=== PATIENT | female | born 1985 | race Caucasian/White ===

== ENCOUNTER 2017-12-11 17:52 | Emergency (ER) | payer SELFPAY ==
[~2017-12-11 17:52] MED LIST: HYDR-4225 PO
[2017-12-11] MEDS ORDERED: FLU44R INH (17:58)
--- NOTE | 2017-12-11 18:06 | ER Report ---
History and Physical Time Seen By MD: 18:05 Hx. of Stated Complaint: PATIENT REPORTS INTERMITTENTLY VOMITING X 2-3 WEEKS, REPORTS THAT IT IS BLOODY AT TIMES AND STATES TODAY IT LOOKED LIKE COFFEE GROUNDS. ALSO HAVING ABD PAIN OF 9/10 HPI/ROS CHIEF COMPLAINT: Vomiting blood HISTORY OF PRESENT ILLNESS: 32-year-old female presents with hematemesis 20 minutes prior to arrival. She's had severe epigastric pain for 2 weeks with some intermittent vomiting. Occasionally, there is been blood. She's had no black stools. No diarrhea. She notes constipation but no blood per rectum. Patient states she is under a great deal of stress. She denies NSAIDs to excess , she drinks significant coughing, but no alcohol. She's never had a previous problem with gastric ulcers or dyspepsia. Her last menstrual period was 3 weeks ago. She denies dysuria, frequent or hematuria. She notes burning epigastric and throat pain 6/10 with no alleviating or exacerbating factors REVIEW OF SYSTEMS: Respiratory: No cough, no dyspnea. Cardiovascular: No chest pain, no palpitations. Gastrointestinal: As above Musculoskeletal: No back pain. Allergies: Coded Allergies: Penicillins (Verified Allergy, Mild, ITCHING, 12/11/17) codeine (Verified Allergy, Mild, ITCHING, 12/11/17) Home Meds Active Scripts Ondansetron (ZOFRAN ODT) 4 Mg Tab.rapdis, 4 MG PO every 6 hours Y for NAUSEA/ VOMITING, #12 TAB TAKE 1 TABLET BY MOUTH EVERY 12 HOURS Prov:MESERET MAYEN DO 12/11/17 Oxycodone Hcl/Acetaminophen (PERCOCET 5-325 MG TABLET) 1 Each Tablet, 1 EACH PO Q4-6H Y for PAIN, #12 Prov:MESERET MAYEN DO 12/11/17 Reported Medications Fluticasone Prop 44 Mcg (FLOVENT HFA 44 MCG) 44 Mcg Inha, 44 MCG INH, INH 12/11/17 Discontinued Scripts Hydroxyzine Hcl (HYDROXYZINE HCL) 25 Mg Tablet, 25 MG PO Q6H Y for ANXIETY, #30 TAB Prov:LANDRY CHAO 05/08/17 Past Medical/Surgical History Patient has a past medical history of fluid around heart, asthma, hypothyroidism. Patient has a surgical history of a breast biopsy. Reviewed Nurses Notes: Yes Old Medical Records Reviewed: Yes Constitutional Vital Sign - Last 24 Hours 12/11/17 12/11/17 12/11/17 17:58 20:19 20:58 Temp 97.5 Pulse 104 91 Resp 19 12 B/P (MAP) 126/93 104/78 (87) Pulse Ox 95 93 O2 Delivery Room Air Room Air O2 Flow Rate 2.0 Physical Exam General Appearance: The patient is alert, has no immediate need for airway protection and no current signs of toxicity. Skin warm, dry, pink, vital signs stable, mildly tachycardic at 104 HEENT: Pupils equal and round no injection. Oropharynx without redness, mucous. Membranes are moist and pink Respiratory: Chest is non tender, lungs are clear to auscultation. Cardiac: regular rate and rhythm Gastrointestinal: Abdomen is soft, moderate epigastric tenderness, no rebound or guarding, no masses, bowel sounds normal. Musculoskeletal: Neck: Neck is supple and non tender. No lymphadenopathy Extremities have full range of motion and are non tender. No edema, no calf tenderness Skin: No rashes or lesions. DIFFERENTIAL DIAGNOSIS: After history and physical exam differential diagnosis was considered for upper GI bleeding including but not limited to ulcer disease , gastritis, Johana-Navarrete tear, and esophageal varices. Medical Decision Making Data Points Result Diagram: 12/11/17 1808 12/11/17 1808 Laboratory Hematology Test 12/11/17 18:08 12/11/17 18:49 Red Blood Count 4.61 M/uL (4.17-5.56) Mean Corpuscular Volume 89.7 fL (80.0-96.0) Mean Corpuscular Hemoglobin 31.0 pg (26.0-33.0) Mean Corpuscular Hemoglobin Concent 34.6 g/dL (32.0-36.0) Red Cell Distribution Width 12.6 % (11.5-14.5) Mean Platelet Volume 7.6 fL (7.2-11.1) Neutrophils (%) (Auto) 74.5 % (39.4-72.5) Lymphocytes (%) (Auto) 19.3 % (17.6-49.6) Monocytes (%) (Auto) 4.3 % (4.1-12.4) Eosinophils (%) (Auto) 1.4 % (0.4-6.7) Basophils (%) (Auto) 0.5 % (0.3-1.4) Nucleated RBC Relative Count (auto) 0.0 /100WBC Neutrophils # (Auto) 13.0 K/uL (2.0-7.4) Lymphocytes # (Auto) 3.3 K/uL (1.3-3.6) Monocytes # (Auto) 0.7 K/uL (0.3-1.0) Eosinophils # (Auto) 0.2 K/uL (0.0-0.5) Basophils # (Auto) 0.1 K/uL (0.0-0.1) Nucleated RBC Absolute Count (auto) 0.00 K/uL Prothrombin Time 13.2 seconds (12.0-14.4) Prothromb Time International Ratio 1.00 Activated Partial Thromboplast Time 29 seconds (23-35) Sodium Level 136 mmol/L (137-145) Potassium Level 3.8 mmol/L (3.5-5.0) Chloride Level 101 mmol/L (98-107) Carbon Dioxide Level 22 mmol/L (22-31) Blood Urea Nitrogen 16 mg/dl (7-18) Creatinine 0.80 mg/dl (0.52-1.04) Glomerular Filtration Rate Calc > 60.0 Random Glucose 109 mg/dl (75-110) Calcium Level 9.5 mg/dl (8.4-10.2) Total Bilirubin 0.8 mg/dl (0.2-1.3) Aspartate Amino Transf (AST/SGOT) 38 U/L (0-35) Alanine Aminotransferase (ALT/SGPT) 57 U/L (0-56) Alkaline Phosphatase 92 U/L (0-126) Total Protein 8.0 gm/dl (6.3-8.2) Albumin 4.5 g/dl (3.5-5.0) Amylase Level 94 U/L (0-110) Lipase 41 U/L (23-300) Human Chorionic Gonadotropin, Qual Negative (NEGATIVE) Urine Color Yellow Urine Clarity Clear Urine pH 5.0 pH (4.8-9.5) Urine Specific [place] 1.019 Urine Protein Negative mg/dL (NEGATIVE) Urine Glucose (UA) Negative mg/dL (NEGATIVE) Urine Ketones Trace mg/dL (NEGATIVE) Urine Blood Large (NEGATIVE) Urine Nitrite Negative (NEGATIVE) Urine Bilirubin Negative (NEGATIVE) Urine Urobilinogen Negative mg/dL (0.2-1.9) Urine Leukocyte Esterase Negative (NEGATIVE) Urine RBC 34 /HPF (0-2/HPF) Urine WBC 3 /HPF (0-5/HPF) Urine Squamous Epithelial Cells Many /LPF (</=FEW) Urine Bacteria Few /HPF (NONE-FEW) Urine Mucus None /HPF (NONE-FEW) Chemistry Test 12/11/17 18:08 12/11/17 18:49 White Blood Count 17.4 k/uL (4.5-11.0) Red Blood Count 4.61 M/uL (4.17-5.56) Hemoglobin 14.3 g/dL (12.0-16.0) Hematocrit 41.3 % (34.0-47.0) Mean Corpuscular Volume 89.7 fL (80.0-96.0) Mean Corpuscular Hemoglobin 31.0 pg (26.0-33.0) Mean Corpuscular Hemoglobin Concent 34.6 g/dL (32.0-36.0) Red Cell Distribution Width 12.6 % (11.5-14.5) Platelet Count 317 K/uL (150-450) Mean Platelet Volume 7.6 fL (7.2-11.1) Neutrophils (%) (Auto) 74.5 % (39.4-72.5) Lymphocytes (%) (Auto) 19.3 % (17.6-49.6) Monocytes (%) (Auto) 4.3 % (4.1-12.4) Eosinophils (%) (Auto) 1.4 % (0.4-6.7) Basophils (%) (Auto) 0.5 % (0.3-1.4) Nucleated RBC Relative Count (auto) 0.0 /100WBC Neutrophils # (Auto) 13.0 K/uL (2.0-7.4) Lymphocytes # (Auto) 3.3 K/uL (1.3-3.6) Monocytes # (Auto) 0.7 K/uL (0.3-1.0) Eosinophils # (Auto) 0.2 K/uL (0.0-0.5) Basophils # (Auto) 0.1 K/uL (0.0-0.1) Nucleated RBC Absolute Count (auto) 0.00 K/uL Prothrombin Time 13.2 seconds (12.0-14.4) Prothromb Time International Ratio 1.00 Activated Partial Thromboplast Time 29 seconds (23-35) Glomerular Filtration Rate Calc > 60.0 Calcium Level 9.5 mg/dl (8.4-10.2) Total Bilirubin 0.8 mg/dl (0.2-1.3) Aspartate Amino Transf (AST/SGOT) 38 U/L (0-35) Alanine Aminotransferase (ALT/SGPT) 57 U/L (0-56) Alkaline Phosphatase 92 U/L (0-126) Total Protein 8.0 gm/dl (6.3-8.2) Albumin 4.5 g/dl (3.5-5.0) Amylase Level 94 U/L (0-110) Lipase 41 U/L (23-300) Human Chorionic Gonadotropin, Qual Negative (NEGATIVE) Urine Color Yellow Urine Clarity Clear Urine pH 5.0 pH (4.8-9.5) Urine Specific [place] 1.019 Urine Protein Negative mg/dL (NEGATIVE) Urine Glucose (UA) Negative mg/dL (NEGATIVE) Urine Ketones Trace mg/dL (NEGATIVE) Urine Blood Large (NEGATIVE) Urine Nitrite Negative (NEGATIVE) Urine Bilirubin Negative (NEGATIVE) Urine Urobilinogen Negative mg/dL (0.2-1.9) Urine Leukocyte Esterase Negative (NEGATIVE) Urine RBC 34 /HPF (0-2/HPF) Urine WBC 3 /HPF (0-5/HPF) Urine Squamous Epithelial Cells Many /LPF (</=FEW) Urine Bacteria Few /HPF (NONE-FEW) Urine Mucus None /HPF (NONE-FEW) Coagulation Test 12/11/17 18:08 Prothrombin Time 13.2 seconds Prothromb Time International Ratio 1.00 Activated Partial Thromboplast Time 29 seconds Urinalysis Test 12/11/17 18:49 Urine Color Yellow Urine Clarity Clear Urine pH 5.0 pH (4.8-9.5) Urine Specific [place] 1.019 Urine Protein Negative mg/dL (NEGATIVE) Urine Glucose (UA) Negative mg/dL (NEGATIVE) Urine Ketones Trace mg/dL (NEGATIVE) Urine Blood Large (NEGATIVE) Urine Nitrite Negative (NEGATIVE) Urine Bilirubin Negative (NEGATIVE) Urine Urobilinogen Negative mg/dL (0.2-1.9) Urine Leukocyte Esterase Negative (NEGATIVE) Urine RBC 34 /HPF (0-2/HPF) Urine WBC 3 /HPF (0-5/HPF) Urine Squamous Epithelial Cells Many /LPF (</=FEW) Urine Bacteria Few /HPF (NONE-FEW) Urine Mucus None /HPF (NONE-FEW) EKG/Imaging Imaging Results: CT scan of the abdomen and pelvis with IV contrast was obtained. The results of the study are CT abdomen and pelvis with IV contrast Indication: Epigastric pain. Elevated white blood cell count. Comparison: None available. . Technique: Axial CT images were obtained through the abdomen and pelvis during injection of nonionic iodinated intravenous contrast. Reformatted coronal and sagittal images were also obtained. One of the following dose optimization techniques was utilized in the performance of this exam: Automated exposure control; adjustment of the mA and/ or kV according to the patient's size; or use of an iterative reconstruction technique. Specific details can be referenced in the facility's radiology CT exam operational policy. Contrast: 75 ml of Isovue-370 IV contrast. Findings: Lower lung lara: Limited views lower lung field are unremarkable. Liver: No focal parenchymal abnormality of the liver. Biliary: Gallbladder appears unremarkable as well as the intra and extra hepatic biliary system. Pancreas: Normal appearance. Spleen: Normal appearance. Adrenal glands: Unremarkable. Kidneys / retroperitoneum: The right kidney does show a 2 mm stone collecting system without hydronephrosis. The kidneys show no other stones or hydronephrosis. No discrete renal lesions. Bowel / peritoneum / mesenteries: Sigmoid colon appears to have a couple areas of contractions without focal abnormality. The colon shows no focal abnormality. The appendix is normal. Small bowel shows no focal abnormality or obstruction. The stomach is mainly decompressed and grossly normal. No free air, free fluid, fluid collections or areas of inflammation. Small umbilical hernia containing fat. Lymph node assessment: No pathologic adenopathy identified. Pelvic structures: Left ovary contains a 2.3 cm cyst. The ovaries are otherwise unremarkable. The uterus may show a subseptate appearance. The right fundal portion the uterus does show a partially exophytic nodule measuring 1.3 cm consistent fibroid and is otherwise unremarkable.. Each wall of the vagina does show a cyst without inflammatory changes or other focal abnormality. Right side measures 2.1 cm left side measures 1.1 cm. These are consistent with Bartholin's gland cyst. The remaining pelvic structures visualized within normal limits. Vessels: No significant atherosclerotic calcifications seen throughout a nonaneurysmal abdominal aorta and branches. Musculoskeletal / Body wall: No acute or aggressive osseous abnormality. IMPRESSION: 1. No acute intra-abdominal abnormality 2. Nonobstructing right renal calculi. 3. Left ovary shows a 2.3 cm cyst. 4. The uterus shows a possible subseptate appearance and a 1.3 cm fibroid. 5. There is a Bartholin's gland cyst seen in its side of the vagina. The study was read by the radiologist. I viewed the images myself on the PACS system. ED Course/Re-evaluation Clinical Indication for ER IV: Hydration, IV Access ED Course Patient was admitted to an examination room. H&P was done. The differential diagnoses was considered, on clinical examination. Patient has severe epigastric abdominal pain with vomiting and reported hematemesis. She's had no black stools or blood per rectum. Patient's treated with IV fluid, Zofran, fentanyl. Diagnostic studies show normal WBC count, normal H&H. Her coags are normal. Patient had presented significant abdominal discomfort. CT scan was performed which showed no acute findings. Patient's advised to take Prilosec 20 mg per day. She's given a limited supply of Percocet and Zofran for temporary pain relief. She is advised to avoid alcohol NSAIDs and caffeine. She is advised to follow-up with Dr. Bernard for endoscopy. Decision to Disposition Date: Dec 11, 2017 Decision to Disposition Time: 20:30 Depart Departure Latest Vital Signs Vital Signs Date Time Temp Pulse Resp B/P (MAP) Pulse Ox O2 Delivery O2 Flow Rate FiO2 12/11/17 20:58 91 12 104/78 (87) 93 Room Air 12/11/17 20:19 2.0 12/11/17 17:58 97.5 Impression: Primary Impression: Hematemesis Additional Impressions: History of gastric ulcer Epigastric pain Condition: Improved Disposition: HOME OR SELF-CARE Referrals: TEOFILO COFFEY MD New Scripts Ondansetron (ZOFRAN ODT) 4 Mg Tab.rapdis 4 MG PO every 6 hours Y for NAUSEA/VOMITING, #12 TAB TAKE 1 TABLET BY MOUTH EVERY 12 HOURS Prov: MESERET MAYEN DO 12/11/17 Oxycodone Hcl/Acetaminophen (PERCOCET 5-325 MG TABLET) 1 Each Tablet 1 EACH PO Q4-6H Y for PAIN, #12 Prov: MESERET MAYEN DO 12/11/17 Patient Instructions: Diet for Stomach Ulcers and Gastritis (ED), Hematemesis ( ED) Additional Instructions: Avoid caffeine, NSAIDs, alcohol Take Prilosec 20 mg twice daily for 1 week, then once daily Call and make an appointment with Dr. Bernard next week Problem Qualifiers Primary Impression: Hematemesis Nausea presence: with nausea Qualified Codes: K92.0 - Hematemesis MESERET MAYEN DO Dec 11, 2017 18:05
[2017-12-11] MEDS ORDERED: NS(*) 0.9% 1000 ML BAG 1,000 ML IV ONE (18:11)
[2017-12-11] MEDS ORDERED: fentaNYL CITR 100 MCG/2 ML AMP IVP ONE (18:15)
[2017-12-11] MEDS ORDERED: ONDANSETRON 4 MG/2 ML VIAL IVP ONE (18:15)
[2017-12-11 18:24] LABS: PLATELET COUNT, AUTOMATED 317 K/uL (150-450)
[2017-12-11] MEDS ORDERED: HYDROmorphone(ER ONLY) 1 MG/ML IVP ONE (19:15)
[2017-12-11] MEDS ORDERED: IOPAMIDOL 76% 75 ML INFUS BTL 75 ML ONE (19:26)
--- NOTE | 2017-12-11 20:22 | RADIOLOGY IMAGING REPORT ---
FACILITY: [facility] PATIENT NAME: Elaine Brito : 1985 MR: [id number] V: [id number] EXAM DATE: ORDERING PHYSICIAN: MESERET MAYEN TECHNOLOGIST: Location: [facility] - [place] Patient: Elaine Brito : 1985 Visit/Account:[id number] Date of Sevice: 12/11/2017 CT abdomen and pelvis with IV contrast Indication: Epigastric pain. Elevated white blood cell count. Comparison: None available. . Technique: Axial CT images were obtained through the abdomen and pelvis during injection of nonioni c iodinated intravenous contrast. Reformatted coronal and sagittal images were also obtained. One of the following dose optimization techniques was utilized in the performance of this exam: Autom ated exposure control; adjustment of the mA and/or kV according to the patient's size; or use of an i terative reconstruction technique. Specific details can be referenced in the facility's radiology C T exam operational policy. Contrast: 75 ml of Isovue-370 IV contrast. Findings: Lower lung lara: Limited views lower lung field are unremarkable. Liver: No focal parenchymal abnormality of the liver. Biliary: Gallbladder appears unremarkable as well as the intra and extra hepatic biliary system. Pancreas: Normal appearance. Spleen: Normal appearance. Adrenal glands: Unremarkable. Kidneys / retroperitoneum: The right kidney does show a 2 mm stone collecting system without hydronep hrosis. The kidneys show no other stones or hydronephrosis. No discrete renal lesions. Bowel / peritoneum / mesenteries: Sigmoid colon appears to have a couple areas of contractions withou t focal abnormality. The colon shows no focal abnormality. The appendix is normal. Small bowel shows no focal abnormality or obstruction. The stomach is mainly decompressed and grossly normal. No free air, free fluid, fluid collections or areas of inflammation. Small umbilical hernia containin g fat. Lymph node assessment: No pathologic adenopathy identified. Pelvic structures: Left ovary contains a 2.3 cm cyst. The ovaries are otherwise unremarkable. The uterus may show a subseptate appearance. The right fundal portion the uterus does show a partially ex ophytic nodule measuring 1.3 cm consistent fibroid and is otherwise unremarkable.. Each wall of the v agina does show a cyst without inflammatory changes or other focal abnormality. Right side measures 2 .1 cm left side measures 1.1 cm. These are consistent with Bartholin's gland cyst. The remaining pelv ic structures visualized within normal limits. Vessels: No significant atherosclerotic calcifications seen throughout a nonaneurysmal abdominal aort a and branches. Musculoskeletal / Body wall: No acute or aggressive osseous abnormality. IMPRESSION: 1. No acute intra-abdominal abnormality 2. Nonobstructing right renal calculi. 3. Left ovary shows a 2.3 cm cyst. 4. The uterus shows a possible subseptate appearance and a 1.3 cm fibroid. 5. There is a Bartholin's gland cyst seen in its side of the vagina. Report Dictated By: Jesus Alejo at 12/11/2017 7:59 PM Report E-Signed By: Jesus Alejo at 12/11/2017 8:18 PM WSN:[id number]
[2017-12-11] MEDS ORDERED: ONDA4TAB PO (20:32)
[2017-12-11] MEDS ORDERED: OXYC-865 PO (20:32)
[2017-12-11] MEDS ORDERED: ONDANSETRON 4 MG ODT TH SL ONE (20:35)
[2017-12-11] MEDS ORDERED: oxyCODONE/ACETAMIN 5/325MG TH 2 TAB/BOTTLE PO ONE (20:35)
[2017-12-11 20:58] VITALS: BP 104/78
== END 2017-12-11 20:55 | disposition home or self-care (01) ==
LOC: ER 18:00
DX: K92.0 Hematemesis (principal); R10.13 Epigastric pain
CPT/HCPCS: 74177; 81001; 82150; 83690; 84703; 85025; 85610; 85730; 96361; 96374; 96375; 99283; J1170; J2405; J3010; J7030; Q9967; S0119; 82040; 82247; 82310; 82374; 82435; 82565; 82947; 84075; 84132; 84155; 84295; 84450; 84460; 84520

== ENCOUNTER 2018-04-03 19:24 | Emergency (ER) | payer SELFPAY ==
[~2018-04-03 19:24] MED LIST changes: +FLU44R INH; +ONDA4TAB PO; +OXYC-865 PO
--- NOTE | 2018-04-03 19:25 | ER Report ---
History and Physical Time Seen By MD: 19:25 HPI/ROS CHIEF COMPLAINT: Vomiting blood, chest pain HISTORY OF PRESENT ILLNESS: 32-year-old female presents ambulatory the ER complaining of chest pain for 5 days. She describes sharp substernal chest pain without radiation. She notes no associated symptoms. She comes in tonight because of chest pain is constant and severe. She notes it's been primary intermittent for the last 5 days. Tonight she vomited some blood. She has a similar presentation from back in November of this year. She was referred to Dr. Bernard for endoscopy. She failed to follow-up. She notes she took her aspirin earlier today. She denies NSAIDs to excess, alcohol or caffeine. Patient denies history of abdominal surgery. Her last menstrual period was 03/19. During her last evaluation. A CAT scan of the abdomen and pelvis was performed. There were general Lack of remarkable findings. REVIEW OF SYSTEMS: Respiratory: No cough, no dyspnea. Cardiovascular: As above Gastrointestinal: As above Musculoskeletal: No back pain. Allergies: Coded Allergies: Penicillins (Verified Allergy, Mild, ITCHING, 12/11/17) codeine (Verified Allergy, Mild, ITCHING, 12/11/17) Home Meds Active Scripts Tramadol Hcl (TRAMADOL HCL) 50 Mg Tablet, 1 TAB PO Q6H Y for PAIN, #12 MG TAKE ONE TABLET BY MOUTH EVERY SIX HOURS NEEDED Prov:TIARRAMESERET DO 04/03/18 Lorazepam (ATIVAN) 1 Mg Tablet, 1 MG PO Q6-8H Y for ANXIETY, #12 Prov:MESERET MAYEN Radha DO 04/03/18 Ondansetron (ZOFRAN ODT) 4 Mg Tab.rapdis, 4 MG PO Q6H Y for NAUSEA/VOMITING, # 12 TAB.CASSIDY Prov:MESERET AMYEN DO 04/03/18 Discontinued Reported Medications Fluticasone Prop 44 Mcg (FLOVENT HFA 44 MCG) 44 Mcg Inha, 44 MCG INH, INH 12/11/17 Discontinued Scripts Ondansetron (ZOFRAN ODT) 4 Mg Tab.rapdis, 4 MG PO every 6 hours Y for NAUSEA/ VOMITING, #12 TAB TAKE 1 TABLET BY MOUTH EVERY 12 HOURS Prov:MESERET MAYEN DO 12/11/17 Oxycodone Hcl/Acetaminophen (PERCOCET 5-325 MG TABLET) 1 Each Tablet, 1 EACH PO Q4-6H Y for PAIN, #12 Prov:MESERET MAYEN DO 12/11/17 Reviewed Nurses Notes: Yes Old Medical Records Reviewed: Yes Constitutional Vital Sign - Last 24 Hours 04/03/18 04/03/18 04/03/18 04/03/18 19:27 19:28 19:29 19:30 Temp 98.6 Pulse 85 83 Resp 16 22 B/P (MAP) 108/82 (91) 108/82 104/72 (83) Pulse Ox 98 98 O2 Delivery Room Air 04/03/18 04/03/18 04/03/18 04/03/18 19:34 19:39 19:44 19:49 Pulse 75 82 73 81 Resp 26 17 16 16 Pulse Ox 97 96 96 96 04/03/18 04/03/18 04/03/18 04/03/18 19:52 19:54 20:14 20:20 Pulse 73 72 Resp 20 12 B/P (MAP) 98/67 (77) 109/81 (90) Pulse Ox 98 94 04/03/18 20:29 Pulse 77 Resp 11 Pulse Ox 97 Physical Exam Vital signs stable, afebrile, pulse ox normal General Appearance: The patient is alert, has no immediate need for airway protection and no current signs of toxicity. Slightly pale appearing, skin warm and dry HEENT: Pupils equal and round no injection. TMs normal, oropharynx without redness or exudate, no evidence of bleeding, and nasal passages. Oropharynx Respiratory: Chest is non tender, lungs are clear to auscultation. Mild chest wall tenderness on compression Cardiac: regular rate and rhythm Gastrointestinal: Abdomen is soft and non tender, no masses, bowel sounds normal. Musculoskeletal: Neck: Neck is supple and non tender. No lymphadenopathy, no JVD Extremities have full range of motion and are non tender. No calf tenderness, no edema Skin: No rashes or lesions. DIFFERENTIAL DIAGNOSIS: After history and physical exam differential diagnosis was considered for abdominal pain including but not limited to appendicitis, cholecystitis, dyspepsia, peptic ulcer disease, gastritis, esophagitis gastritis and urinary tract infection. Additionally,chest pain including but not limited to myocardial ischemia, pericarditis pulmonary embolus, chest wall pain, pleural inflammation and pulmonary infectious causes. Medical Decision Making Data Points Result Diagram: 04/03/18192904/03/181929 Laboratory Hematology Test 04/03/18 19:30 04/03/18 20:02 Red Blood Count 4.98 M/uL (4.17-5.56) Mean Corpuscular Volume 89.8 fL (80.0-96.0) Mean Corpuscular Hemoglobin 31.7 pg (26.0-33.0) Mean Corpuscular Hemoglobin Concent 35.3 g/dL (32.0-36.0) Red Cell Distribution Width 12.8 % (11.5-14.5) Mean Platelet Volume 7.7 fL (7.2-11.1) Neutrophils (%) (Auto) 58.0 % (39.4-72.5) Lymphocytes (%) (Auto) 29.4 % (17.6-49.6) Monocytes (%) (Auto) 4.7 % (4.1-12.4) Eosinophils (%) (Auto) 6.7 % (0.4-6.7) Basophils (%) (Auto) 1.2 % (0.3-1.4) Nucleated RBC Relative Count (auto) 0.0 /100WBC Neutrophils # (Auto) 5.6 K/uL (2.0-7.4) Lymphocytes # (Auto) 2.8 K/uL (1.3-3.6) Monocytes # (Auto) 0.5 K/uL (0.3-1.0) Eosinophils # (Auto) 0.7 K/uL (0.0-0.5) Basophils # (Auto) 0.1 K/uL (0.0-0.1) Nucleated RBC Absolute Count (auto) 0.00 K/uL Prothrombin Time 12.8 seconds (12.0-14.4) Prothromb Time International Ratio 0.96 Activated Partial Thromboplast Time 29 seconds (23-35) D-Dimer Quantitative (PE/DVT) 0.43 ug/ml (0-0.50) Sodium Level 139 mmol/L (137-145) Potassium Level 3.8 mmol/L (3.5-5.0) Chloride Level 108 mmol/L (98-107) Carbon Dioxide Level 20 mmol/L (22-31) Blood Urea Nitrogen 13 mg/dl (7-18) Creatinine 0.80 mg/dl (0.52-1.04) Glomerular Filtration Rate Calc > 60.0 Random Glucose 116 mg/dl (75-110) Calcium Level 8.9 mg/dl (8.4-10.2) Total Bilirubin 1.0 mg/dl (0.2-1.3) Aspartate Amino Transf (AST/SGOT) 35 U/L (0-35) Alanine Aminotransferase (ALT/SGPT) 50 U/L (0-56) Alkaline Phosphatase 82 U/L (0-126) Troponin I < 0.012 ng/ml Total Protein 7.8 g/dl (6.3-8.2) Albumin 4.5 g/dl (3.5-5.0) Human Chorionic Gonadotropin, Qual Negative (NEGATIVE) Amylase Level 63 U/L (0-110) Lipase 47 U/L (23-300) Chemistry Test 04/03/18 19:30 04/03/18 20:02 White Blood Count 9.7 k/uL (4.5-11.0) Red Blood Count 4.98 M/uL (4.17-5.56) Hemoglobin 15.8 g/dL (12.0-16.0) Hematocrit 44.7 % (34.0-47.0) Mean Corpuscular Volume 89.8 fL (80.0-96.0) Mean Corpuscular Hemoglobin 31.7 pg (26.0-33.0) Mean Corpuscular Hemoglobin Concent 35.3 g/dL (32.0-36.0) Red Cell Distribution Width 12.8 % (11.5-14.5) Platelet Count 328 K/uL (150-450) Mean Platelet Volume 7.7 fL (7.2-11.1) Neutrophils (%) (Auto) 58.0 % (39.4-72.5) Lymphocytes (%) (Auto) 29.4 % (17.6-49.6) Monocytes (%) (Auto) 4.7 % (4.1-12.4) Eosinophils (%) (Auto) 6.7 % (0.4-6.7) Basophils (%) (Auto) 1.2 % (0.3-1.4) Nucleated RBC Relative Count (auto) 0.0 /100WBC Neutrophils # (Auto) 5.6 K/uL (2.0-7.4) Lymphocytes # (Auto) 2.8 K/uL (1.3-3.6) Monocytes # (Auto) 0.5 K/uL (0.3-1.0) Eosinophils # (Auto) 0.7 K/uL (0.0-0.5) Basophils # (Auto) 0.1 K/uL (0.0-0.1) Nucleated RBC Absolute Count (auto) 0.00 K/uL Prothrombin Time 12.8 seconds (12.0-14.4) Prothromb Time International Ratio 0.96 Activated Partial Thromboplast Time 29 seconds (23-35) D-Dimer Quantitative (PE/DVT) 0.43 ug/ml (0-0.50) Glomerular Filtration Rate Calc > 60.0 Calcium Level 8.9 mg/dl (8.4-10.2) Total Bilirubin 1.0 mg/dl (0.2-1.3) Aspartate Amino Transf (AST/SGOT) 35 U/L (0-35) Alanine Aminotransferase (ALT/SGPT) 50 U/L (0-56) Alkaline Phosphatase 82 U/L (0-126) Troponin I < 0.012 ng/ml Total Protein 7.8 g/dl (6.3-8.2) Albumin 4.5 g/dl (3.5-5.0) Human Chorionic Gonadotropin, Qual Negative (NEGATIVE) Amylase Level 63 U/L (0-110) Lipase 47 U/L (23-300) Coagulation Test 04/03/18 19:30 Prothrombin Time 12.8 seconds Prothromb Time International Ratio 0.96 Activated Partial Thromboplast Time 29 seconds D-Dimer Quantitative (PE/DVT) 0.43 ug/ml EKG/Imaging EKG Interpretation 12 lead EK Rhythm: normal sinus rhythm with marked sinus arrhythmia, short CO interval [place]: normal QRS: normal ST segments: normal, comparison to previous EKG dated 05/08/17, no gross overall morphologic change, no evidence of ischemia ED Course/Re-evaluation Clinical Indication for ER IV: IV Access ED Course Patient was admitted to an examination room. H&P was done. The differential diagnoses was considered. On clinical examination. Patient has some hematemesis. Her vital signs are stable. Diagnostic studies show a stable H& H. She is treated with IV Zofran and fentanyl as well as IV fluid hydration. Patient's advised to take Prilosec to reduce her stomach acid daily. She is advised to follow-up with Dr. Bernard for endoscopy. Patient's given prescription for Zofran, Ativan for anxiety and tramadol for pain. Decision to Disposition Date: Apr 03, 2018 Decision to Disposition Time: 19:53 Depart Departure Latest Vital Signs Vital Signs Date Time Temp Pulse Resp B/P (MAP) Pulse Ox O2 Delivery O2 Flow Rate FiO2 04/03/18 20:29 77 11 97 04/03/18 20:20 109/81 (90) 04/03/18 19:28 98.6 Room Air Impression: Primary Impression: Epigastric pain Additional Impression: Hematemesis Condition: Improved Disposition: HOME OR SELF-CARE Referrals: TEOFILO COFFEY MD New Scripts Tramadol Hcl (TRAMADOL HCL) 50 Mg Tablet 1 TAB PO Q6H Y for PAIN, #12 MG TAKE ONE TABLET BY MOUTH EVERY SIX HOURS NEEDED Prov: MESERET MAYEN DO 04/03/18 Lorazepam (ATIVAN) 1 Mg Tablet 1 MG PO Q6-8H Y for ANXIETY, #12 Prov: MESERET MAYEN DO 04/03/18 Ondansetron (ZOFRAN ODT) 4 Mg Tab.rapdis 4 MG PO Q6H Y for NAUSEA/VOMITING, #12 TAB.CASSIDY Prov: MESERET MAYEN DO 04/03/18 Patient Instructions: Anxiety (ED), Hematemesis (ED) Additional Instructions: Take Prilosec 20 mg per day to reduce her stomach acid Avoid aspirin, alcohol, caffeine, cigarettes, smoking Follow-up with Dr. Coffey for endoscopy within 2 weeks Problem Qualifiers Additional Impression: Hematemesis Nausea presence: with nausea Qualified Codes: K92.0 - Hematemesis TIARRAMESERET DO Apr 03, 2018 19:25
[2018-04-03] MEDS ORDERED: NS(*) 0.9% 1000 ML BAG 1,000 ML IV ONE (19:38)
[2018-04-03] MEDS ORDERED: fentaNYL CITR 100 MCG/2 ML AMP IVP ONE (19:40)
[2018-04-03] MEDS ORDERED: ONDANSETRON 4 MG/2 ML VIAL IVP ONE (19:40)
--- NOTE | 2018-04-03 19:43 | EKG ---
FAC[place] [facility] [place]IENT NAME: TORY GARCIA : [id number] MR: [id number] V: [id number] EXAM DATE: ORDERING PHYSICIAN: MESERET MAYEN TECHNOLOGIST: Test Reason : Blood Pressure : / mmHG Vent. Rate : 077 BPM Atrial Rate : 088 BPM P-R Int : 110 ms QRS Dur : 064 ms QT Int : 384 ms P-R-T Axes : 018 040 042 degrees QTc Int : 434 ms Sinus rhythm with marked sinus arrhythmia Otherwise normal ECG Confirmed by MARKEL HORVATH ([id number]) on 04/04/2018 5:53:37 AM Referred By: Confirmed By:MARKEL HORVATH
[2018-04-03 19:47] LABS: PLATELET COUNT, AUTOMATED 328 K/uL (150-450)
[2018-04-03 19:59] LABS: INR 0.96
[2018-04-03 20:20] VITALS: BP 109/81
--- NOTE | 2018-04-03 20:32 | RADIOLOGY IMAGING REPORT ---
FACILITY: [facility] - [place] PATIENT NAME: Elaine Brito : 1985 MR: [id number] V: [id number] EXAM DATE: ORDERING PHYSICIAN: MESERET MAYEN TECHNOLOGIST: Location: Patient: Elaine Brito : 1985 Visit/Account:[id number] Date of Sevice: 04/03/2018 HISTORY: Chest pain DATE: 04/03/2018 7:38 PM TECHNIQUE: CHEST PA AND LAT COMPARISON: none FINDINGS: The cardiomediastinal silhouette is of normal size and contour. No pleural effusion. No pne umothorax. No consolidation. The lungs are adequately expanded. IMPRESSION: Normal chest. Report Dictated By: Lalita Gonzalez MD at 04/03/2018 8:27 PM Report E-Signed By: Lalita Gonzaelz MD at 04/03/2018 8:27 PM [id number]
[2018-04-03] MEDS ORDERED: traMADol 50 MG TAB TH 2 TAB/BOTTLE PO ONE (20:35)
[2018-04-03] MEDS ORDERED: TRAM-420 PO (20:35)
[2018-04-03] MEDS ORDERED: ONDA4TAB PO (20:35)
[2018-04-03] MEDS ORDERED: ONDANSETRON 4 MG ODT TH SL ONE (20:35)
[2018-04-03] MEDS ORDERED: LORA-1456 PO (20:35)
== END 2018-04-03 20:45 | disposition home or self-care (01) ==
LOC: ER 19:35
DX: R10.13 Epigastric pain (principal); K92.0 Hematemesis
CPT/HCPCS: 71046; 82150; 83690; 84484; 84703; 85025; 85379; 85610; 85730; 93005; 96361; 96374; 96375; 99284; C9399; J2405; J3010; J7030; S0119; 82040; 82247; 82310; 82374; 82435; 82565; 82947; 84075; 84132; 84155; 84295; 84450; 84460; 84520

== ENCOUNTER 2018-05-18 12:20 | Emergency (ER) | payer SELFPAY ==
[~2018-05-18 12:20] MED LIST changes: +LORA-1456 PO; +TRAM-420 PO
[2018-05-18] MEDS ORDERED: FLU44R INH (12:29)
--- NOTE | 2018-05-18 12:29 | ER Report ---
History and Physical Time Seen By MD: 12:29 Hx. of Stated Complaint: Vomitting for 3 days. Also complains of tingling in hands (LANDRY CHAO) Time Seen By MD: 12:51 (MONICA MARIE MD) HPI/ROS CHIEF COMPLAINT: Abdominal pain HISTORY OF PRESENT ILLNESS patient 33-year-old female with recurrent abdominal pain that migrates from right to left. Associated with nausea without vomiting no fevers or chills. No history of abdominal trauma. She denies chest pain or shortness of breath. She denies fevers or chills. REVIEW OF SYSTEMS: Respiratory: No cough, no dyspnea. Cardiovascular: No chest pain, no palpitations. Gastrointestinal: Right and left sided abdominal pain. No guarding or rebound Musculoskeletal: No back pain. (MONICA MARIE MD) Allergies: Coded Allergies: Penicillins (Verified Allergy, Mild, ITCHING, 05/18/18) codeine (Verified Allergy, Mild, ITCHING, 05/18/18) latex (Verified Allergy, Mild, rash, 05/18/18) Home Meds Active Scripts Oxycodone Hcl/Acetaminophen (PERCOCET 5-325 MG TABLET) 1 Each Tablet, 1-2 EACH PO Q6H for PAIN, #20 TAB 0 Refills No more than 6 tablets per day Prov:MONICA MARIE MD 05/18/18 Reported Medications Fluticasone Prop 44 Mcg (FLOVENT HFA 44 MCG) 44 Mcg Inha, 44 MCG INH, INH 05/18/18 Discontinued Scripts Tramadol Hcl (TRAMADOL HCL) 50 Mg Tablet, 1 TAB PO Q6H Y for PAIN, #12 MG TAKE ONE TABLET BY MOUTH EVERY SIX HOURS NEEDED Prov:MESERET MAYEN DO 04/03/18 Lorazepam (ATIVAN) 1 Mg Tablet, 1 MG PO Q6-8H Y for ANXIETY, #12 Prov:MESERET MAYEN DO 04/03/18 Ondansetron (ZOFRAN ODT) 4 Mg Tab.rapdis, 4 MG PO Q6H Y for NAUSEA/VOMITING, # 12 TAB.CASSIDY Prov:MESERET MAYEN DO 04/03/18 Past Medical/Surgical History History of recurrent abdominal pain (MONICA MARIE MD) Constitutional Vital Sign - Last 24 Hours 05/18/18 12:23 Temp 97.2 Pulse 79 Resp 24 B/P (MAP) 120/93 Pulse Ox 98 O2 Delivery Room Air Intake and Output 05/18/18 05/18/18 05/19/18 15:00 23:00 07:00 Intake Total 50 ml Balance 50 ml (MONICA MARIE MD) Physical Exam General/Constitutional: Patient is awake, alert, nontoxic and in no acute respiratory distress. Head: Normocephalic and atraumatic. Eyes: Conjunctival clear, Pupils are equal and reactive to light. Extraocular muscles are intact and symmetrical. Sclera are clear and anicteric. Ears:External canals are clear. Tympanic membranes are clear with normal landmarks and light reflex. Nares: No rhinorrhea or bleeding. Turbinates are pink and moist. Oropharyngeal: Mucous membranes are moist. There is no pharyngeal erythema or exudate. There are no palatal petechiae. Uvula is midline and symmetrical. Neck: Supple, no adenopathy. Cardiovascular: Heart is regular rate and rhythm without audible murmurs, rubs or gallops. Pulmonary: Lungs are clear to auscultation bilaterally. There are no wheezes, rales, or rhonchi. Chest rise is symmetrical Abdomen: Soft, nontender, no guarding or peritoneal signs. Extremities: No gross deformities, No peripheral cyanosis. Able to move all 4 extremities. Neuro: Alert and oriented X3, Cranial nerves 2 thru 12 are intact and symmetrical. Patient has normal gait. Skin: No rashes, skin is warm dry and well perfused. (MONICA MARIE MD) Medical Decision Making Data Points Result Diagram: 05/18/18 1317 05/18/18 1317 Laboratory Hematology Test 05/18/18 13:17 05/18/18 13:50 Red Blood Count 4.60 M/uL (4.17-5.56) Mean Corpuscular Volume 90.2 fL (80.0-96.0) Mean Corpuscular Hemoglobin 31.8 pg (26.0-33.0) Mean Corpuscular Hemoglobin Concent 35.3 g/dL (32.0-36.0) Red Cell Distribution Width 13.5 % (11.5-14.5) Mean Platelet Volume 7.8 fL (7.2-11.1) Neutrophils (%) (Auto) 61.1 % (39.4-72.5) Lymphocytes (%) (Auto) 29.7 % (17.6-49.6) Monocytes (%) (Auto) 5.1 % (4.1-12.4) Eosinophils (%) (Auto) 2.9 % (0.4-6.7) Basophils (%) (Auto) 1.2 % (0.3-1.4) Nucleated RBC Relative Count (auto) 0.1 /100WBC Neutrophils # (Auto) 4.8 K/uL (2.0-7.4) Lymphocytes # (Auto) 2.3 K/uL (1.3-3.6) Monocytes # (Auto) 0.4 K/uL (0.3-1.0) Eosinophils # (Auto) 0.2 K/uL (0.0-0.5) Basophils # (Auto) 0.1 K/uL (0.0-0.1) Nucleated RBC Absolute Count (auto) 0.01 K/uL Urine HCG, Qualitative Negative (NEGATIVE) Sodium Level 141 mmol/L (137-145) Potassium Level 3.4 mmol/L (3.5-5.0) Chloride Level 107 mmol/L (98-107) Carbon Dioxide Level 25 mmol/L (22-31) Blood Urea Nitrogen 8 mg/dl (7-18) Creatinine 0.70 mg/dl (0.52-1.04) Glomerular Filtration Rate Calc > 60.0 Random Glucose 90 mg/dl (75-110) Calcium Level 9.0 mg/dl (8.4-10.2) Total Bilirubin 0.7 mg/dl (0.2-1.3) Aspartate Amino Transf (AST/SGOT) 45 U/L (0-35) Alanine Aminotransferase (ALT/SGPT) 54 U/L (0-56) Alkaline Phosphatase 69 U/L (0-126) Total Protein 7.2 g/dl (6.3-8.2) Albumin 4.2 g/dl (3.5-5.0) Lipase 25 U/L (23-300) Helicobacter pylori IgG Antibody Negative (NEGATIVE) Urine Color Yellow Urine Clarity Slightly-cloudy Urine pH 7.0 pH (4.8-9.5) Urine Specific [place] 1.010 Urine Protein Negative mg/dL (NEGATIVE) Urine Glucose (UA) Negative mg/dL (NEGATIVE) Urine Ketones Negative mg/dL (NEGATIVE) Urine Blood Negative (NEGATIVE) Urine Nitrite Negative (NEGATIVE) Urine Bilirubin Negative (NEGATIVE) Urine Urobilinogen 2.0 mg/dL (0.2-1.9) Urine Leukocyte Esterase Trace (NEGATIVE) Urine RBC None /HPF (0-2/HPF) Urine WBC 3 /HPF (0-5/HPF) Urine Squamous Epithelial Cells Many /LPF (</=FEW) Urine Bacteria Few /HPF (NONE-FEW) Urine Mucus Few /HPF (NONE-FEW) Chemistry Test 05/18/18 13:17 05/18/18 13:50 White Blood Count 7.8 k/uL (4.5-11.0) Red Blood Count 4.60 M/uL (4.17-5.56) Hemoglobin 14.7 g/dL (12.0-16.0) Hematocrit 41.5 % (34.0-47.0) Mean Corpuscular Volume 90.2 fL (80.0-96.0) Mean Corpuscular Hemoglobin 31.8 pg (26.0-33.0) Mean Corpuscular Hemoglobin Concent 35.3 g/dL (32.0-36.0) Red Cell Distribution Width 13.5 % (11.5-14.5) Platelet Count 350 K/uL (150-450) Mean Platelet Volume 7.8 fL (7.2-11.1) Neutrophils (%) (Auto) 61.1 % (39.4-72.5) Lymphocytes (%) (Auto) 29.7 % (17.6-49.6) Monocytes (%) (Auto) 5.1 % (4.1-12.4) Eosinophils (%) (Auto) 2.9 % (0.4-6.7) Basophils (%) (Auto) 1.2 % (0.3-1.4) Nucleated RBC Relative Count (auto) 0.1 /100WBC Neutrophils # (Auto) 4.8 K/uL (2.0-7.4) Lymphocytes # (Auto) 2.3 K/uL (1.3-3.6) Monocytes # (Auto) 0.4 K/uL (0.3-1.0) Eosinophils # (Auto) 0.2 K/uL (0.0-0.5) Basophils # (Auto) 0.1 K/uL (0.0-0.1) Nucleated RBC Absolute Count (auto) 0.01 K/uL Urine HCG, Qualitative Negative (NEGATIVE) Glomerular Filtration Rate Calc > 60.0 Calcium Level 9.0 mg/dl (8.4-10.2) Total Bilirubin 0.7 mg/dl (0.2-1.3) Aspartate Amino Transf (AST/SGOT) 45 U/L (0-35) Alanine Aminotransferase (ALT/SGPT) 54 U/L (0-56) Alkaline Phosphatase 69 U/L (0-126) Total Protein 7.2 g/dl (6.3-8.2) Albumin 4.2 g/dl (3.5-5.0) Lipase 25 U/L (23-300) Helicobacter pylori IgG Antibody Negative (NEGATIVE) Urine Color Yellow Urine Clarity Slightly-cloudy Urine pH 7.0 pH (4.8-9.5) Urine Specific [place] 1.010 Urine Protein Negative mg/dL (NEGATIVE) Urine Glucose (UA) Negative mg/dL (NEGATIVE) Urine Ketones Negative mg/dL (NEGATIVE) Urine Blood Negative (NEGATIVE) Urine Nitrite Negative (NEGATIVE) Urine Bilirubin Negative (NEGATIVE) Urine Urobilinogen 2.0 mg/dL (0.2-1.9) Urine Leukocyte Esterase Trace (NEGATIVE) Urine RBC None /HPF (0-2/HPF) Urine WBC 3 /HPF (0-5/HPF) Urine Squamous Epithelial Cells Many /LPF (</=FEW) Urine Bacteria Few /HPF (NONE-FEW) Urine Mucus Few /HPF (NONE-FEW) Urinalysis Test 05/18/18 13:17 05/18/18 13:50 Urine HCG, Qualitative Negative (NEGATIVE) Urine Color Yellow Urine Clarity Slightly-cloudy Urine pH 7.0 pH (4.8-9.5) Urine Specific [place] 1.010 Urine Protein Negative mg/dL (NEGATIVE) Urine Glucose (UA) Negative mg/dL (NEGATIVE) Urine Ketones Negative mg/dL (NEGATIVE) Urine Blood Negative (NEGATIVE) Urine Nitrite Negative (NEGATIVE) Urine Bilirubin Negative (NEGATIVE) Urine Urobilinogen 2.0 mg/dL (0.2-1.9) Urine Leukocyte Esterase Trace (NEGATIVE) Urine RBC None /HPF (0-2/HPF) Urine WBC 3 /HPF (0-5/HPF) Urine Squamous Epithelial Cells Many /LPF (</=FEW) Urine Bacteria Few /HPF (NONE-FEW) Urine Mucus Few /HPF (NONE-FEW) (MONICA MARIE MD) EKG/Imaging Imaging FACILITY: [facility] PATIENT NAME: Elaine Brito : 1985 MR: [id number] V: [id number] EXAM DATE: ORDERING PHYSICIAN: MONICA MARIE TECHNOLOGIST: Location: [facility] - [place] Patient: Elaine Brito : 1985 Visit/Account:[id number] Date of Sevice: 05/18/2018 CT abdomen and pelvis with IV contrast Indication: Abdominal pain. Comparison: 12/11/2017.. Technique: Axial CT images were obtained through the abdomen and pelvis during injection of nonionic iodinated intravenous contrast. Reformatted coronal and sagittal images were also obtained. One of the following dose optimization techniques was utilized in the performance of this exam: Automated exposure control; adjustment of the mA and/ or kV according to the patient's size; or use of an iterative reconstruction technique. Specific details can be referenced in the facility's radiology CT exam operational policy. Contrast: 75 ml of Isovue-370 IV contrast. Findings: Lower lung lara: Limited views lower lung field are unremarkable. Liver: No focal parenchymal abnormality of the liver. Biliary: Gallbladder appears unremarkable as well as the intra and extra hepatic biliary system. Pancreas: Normal appearance. Spleen: Normal appearance. Adrenal glands: Unremarkable. Kidneys / retroperitoneum: Right kidney shows a stable 2 mm stone without hydronephrosis. Left kidney shows no stone or hydronephrosis.. No focal abnormality. Bowel / peritoneum / mesenteries: The colon shows no focal abnormality. The appendix is normal. Small bowel shows no focal abnormality or obstruction. Stomach is decompressed and grossly normal. No free air, free fluid, fluid collections or other areas of inflammation. Lymph node assessment: No pathologic adenopathy identified. Pelvic structures: The uterus may show a partially septated appearance and is unchanged. No other focal abnormality. The lateral barnett of the vagina show a Bartholin's gland cyst which is seen previously. These are mildly more prominent 22 lower imaging on today's exam. The left ovary does show a collapsing 9 mm cyst. The remaining pelvic structures visualized within normal limits. Vessels: No significant atherosclerotic calcifications seen throughout a nonaneurysmal abdominal aorta and branches. Musculoskeletal / Body wall: No acute or aggressive osseous abnormality. IMPRESSION: 1. No acute intra-abdominal abnormality 2. Stable nonobstructing right renal calculi. 3. Collapsing 9 mm left ovarian cyst. 4. Other chronic stable findings as above. Report Dictated By: Jesus Alejo at 05/18/2018 2:49 PM Report E-Signed By: Jesus Alejo at 05/18/2018 2:57 PM WSN:[id number] (MONICA MARIE MD) ED Course/Re-evaluation ED Course CT scan shows rate resolving left ovarian cyst which is consistent with patient' s pain. Feeling improved after pain medication we'll discharge and have her follow-up. Decision to Disposition Date: May 18, 2018 Decision to Disposition Time: 15:09 (MONICA MARIE MD) Depart Departure Latest Vital Signs Vital Signs Date Time Temp Pulse Resp B/P (MAP) Pulse Ox O2 Delivery O2 Flow Rate FiO2 05/18/18 12:23 97.2 79 24 120/93 98 Room Air (MONICA MARIE MD) Impression: Primary Impression: Ovarian cyst Condition: Improved Disposition: HOME OR SELF-CARE New Scripts Oxycodone Hcl/Acetaminophen (PERCOCET 5-325 MG TABLET) 1 Each Tablet 1-2 EACH PO Q6H for PAIN, #20 TAB 0 Refills No more than 6 tablets per day Prov: MONICA MARIE MD 05/18/18 Patient Instructions: Ovarian Cyst (DC) Problem Qualifiers Primary Impression: Ovarian cyst Laterality: left Qualified Codes: N83.202 - Unspecified ovarian cyst, left side LANDRY CHAO [employer] May 18, 2018 12:29 MONICA MARIE MD May 18, 2018 12:51
[2018-05-18] MEDS ORDERED: NS(*) 0.9% 1000 ML BAG 1,000 ML IV ONE (13:06)
[2018-05-18] MEDS ORDERED: FAMOTIDINE(*) 20MG/50ML PREMIX 50 ML IVPB ONE (13:06)
[2018-05-18] MEDS ORDERED: ONDANSETRON 4 MG/2 ML VIAL IVP ONE (13:10)
[2018-05-18] MEDS ORDERED: fentaNYL CITR 100 MCG/2 ML AMP IVP ONE (13:10)
[2018-05-18] MEDS ORDERED: IOPAMIDOL 76% 75 ML INFUS BTL 75 ML ONE (13:19)
[2018-05-18 13:38] LABS: PLATELET COUNT, AUTOMATED 350 K/uL (150-450)
[2018-05-18] MEDS ORDERED: KETAMINE HCL(*)500MG/5ML VIAL 500 MG in NS(*) 0.9% 500 ML BAG 495 ML IVPB ONE (13:55)
[2018-05-18 14:00] VITALS: BP 126/88
[2018-05-18] MEDS ORDERED: WATER STERILE 10 ML VIAL IM ONLY ONE (14:55)
[2018-05-18] MEDS ORDERED: OLANZapine 10 MG VIAL IM ONLY ONE (14:55)
--- NOTE | 2018-05-18 15:01 | RADIOLOGY IMAGING REPORT ---
FACILITY: [facility] [place] PATIENT NAME: Elaine Brito : 1985 MR: [id number] V: [id number] EXAM DATE: ORDERING PHYSICIAN: MONICA MARIE TECHNOLOGIST: Location: [facility] [place] Patient: Elaine Brito : 1985 Visit/Account:[id number] Date of Sevice: 05/18/2018 CT abdomen and pelvis with IV contrast Indication: Abdominal pain. Comparison: 12/11/2017.. Technique: Axial CT images were obtained through the abdomen and pelvis during injection of nonioni c iodinated intravenous contrast. Reformatted coronal and sagittal images were also obtained. One of the following dose optimization techniques was utilized in the performance of this exam: Autom ated exposure control; adjustment of the mA and/or kV according to the patient's size; or use of an i terative reconstruction technique. Specific details can be referenced in the facility's radiology C T exam operational policy. Contrast: 75 ml of Isovue-370 IV contrast. Findings: Lower lung lara: Limited views lower lung field are unremarkable. Liver: No focal parenchymal abnormality of the liver. Biliary: Gallbladder appears unremarkable as well as the intra and extra hepatic biliary system. Pancreas: Normal appearance. Spleen: Normal appearance. Adrenal glands: Unremarkable. Kidneys / retroperitoneum: Right kidney shows a stable 2 mm stone without hydronephrosis. Left kidney shows no stone or hydronephrosis.. No focal abnormality. Bowel / peritoneum / mesenteries: The colon shows no focal abnormality. The appendix is normal. Small bowel shows no focal abnormality or obstruction. Stomach is decompressed and grossly normal. No free air, free fluid, fluid collections or other areas of inflammation. Lymph node assessment: No pathologic adenopathy identified. Pelvic structures: The uterus may show a partially septated appearance and is unchanged. No other focal abnormality. The lateral barnett of the vagina show a Bartholin's gland cyst which is seen previo usly. These are mildly more prominent 22 lower imaging on today's exam. The left ovary does show a co llapsing 9 mm cyst. The remaining pelvic structures visualized within normal limits. Vessels: No significant atherosclerotic calcifications seen throughout a nonaneurysmal abdominal aort a and branches. Musculoskeletal / Body wall: No acute or aggressive osseous abnormality. IMPRESSION: 1. No acute intra-abdominal abnormality 2. Stable nonobstructing right renal calculi. 3. Collapsing 9 mm left ovarian cyst. 4. Other chronic stable findings as above. Report Dictated By: Jesus Alejo at 05/18/2018 2:49 PM Report E-Signed By: Jesus Alejo at 05/18/2018 2:57 PM WSN:[id number]
[2018-05-18] MEDS ORDERED: OXYC-865 PO (15:11)
== END 2018-05-18 15:24 | disposition home or self-care (01) ==
LOC: ER 12:33
DX: N83.202 Unspecified ovarian cyst, left side (principal)
CPT/HCPCS: 74177; 81001; 81025; 83690; 85025; 86677; 96365; 96372; 96375; 99284; A4216; J2405; J3010; J3490; J7030; J7040; Q9967; 82040; 82247; 82310; 82374; 82435; 82565; 82947; 84075; 84132; 84155; 84295; 84450; 84460; 84520

== ENCOUNTER 2018-05-19 16:53 | Emergency (ER) | payer SELFPAY ==
[2018-05-19 16:55] VITALS: BP 129/95
--- NOTE | 2018-05-19 17:19 | ER Report ---
History and Physical Time Seen By MD: 17:00 Hx. of Stated Complaint: SENT SUICIDAL MESSAGES TO . HPI/ROS CHIEF COMPLAINT: Emergency chcf HISTORY OF PRESENT ILLNESS: 33-year-old female patient presents to emergency room with the [facility] for an emergency chcf. Patient states that her had packed into her [employer] account and sent herself a message that the patient was going to go get some gas and dry to touch like heady and commit suicide by overdosing on oxycodone. Patient states that her , who did serve her with divorce papers last night, fabricated the entire story. She states that she has no suicidal ideation, she states that she was in fact going out to like headache, but was just going to think about things. Patient denies ever having any suicidal ideation, or mental health problems. The police state that they received a call from the patient's soon-to-be ex- who told them that the patient had stepped out of her, stating that she is going to get gas and is going to drive out to [place] where she is going to overdose on Percocet. They state that when they found her that she was in fact at the gas station and with a surgical they did indeed find a bottle of Percocet. The police superintendent states that they felt that their wishes to much evidence stating that this was in fact her planned and wanted her to come in and be seen by mental health. REVIEW OF SYSTEMS: Respiratory: No cough, no dyspnea. Cardiovascular: No chest pain, no palpitations. Gastrointestinal: No vomiting, no abdominal pain. Musculoskeletal: No back pain. Allergies: Coded Allergies: Penicillins (Verified Allergy, Mild, ITCHING, 05/19/18) codeine (Verified Allergy, Mild, ITCHING, 05/19/18) latex (Verified Allergy, Mild, rash, 05/19/18) Home Meds Active Scripts Oxycodone Hcl/Acetaminophen (PERCOCET 5-325 MG TABLET) 1 Each Tablet, 1-2 EACH PO Q6H for PAIN, #20 TAB 0 Refills No more than 6 tablets per day Prov:MONICA MARIE MD 05/18/18 Discontinued Reported Medications Fluticasone Prop 44 Mcg (FLOVENT HFA 44 MCG) 44 Mcg Inha, 44 MCG INH, INH 05/18/18 Discontinued Scripts Tramadol Hcl (TRAMADOL HCL) 50 Mg Tablet, 1 TAB PO Q6H PRN for PAIN, #12 MG TAKE ONE TABLET BY MOUTH EVERY SIX HOURS NEEDED Prov:MESERET MAYEN DO 04/03/18 Lorazepam (ATIVAN) 1 Mg Tablet, 1 MG PO Q6-8H PRN for ANXIETY, #12 Prov:MESERET MAYEN DO 04/03/18 Ondansetron (ZOFRAN ODT) 4 Mg Tab.rapdis, 4 MG PO Q6H PRN for NAUSEA/VOMITING, #12 TAB.CASSIDY Prov:MESERET MAYEN DO 04/03/18 Past Medical/Surgical History Patient has a past medical history of epilepsy, fluid around the heart, asthma, finger fracture, hypothyroidism, depression. Patient denies any surgical history. Reviewed Nurses Notes: Yes Constitutional Vital Sign - Last 24 Hours 05/19/18 16:55 Temp 98.1 Pulse 73 Resp 15 B/P (MAP) 129/95 Pulse Ox 94 O2 Delivery Room Air Physical Exam General Appearance: The patient is alert, has no immediate need for airway protection and no current signs of toxicity. Respiratory: Chest is non tender, lungs are clear to auscultation. Cardiac: regular rate and rhythm Gastrointestinal: Abdomen is soft and non tender, no masses, bowel sounds norm al. Musculoskeletal: Neck: Neck is supple and non tender. Extremities have full range of motion and are non tender. Skin: No rashes or lesions. DIFFERENTIAL DIAGNOSIS: After history and physical exam differential diagnosis was considered for suicidal ideation, depression. Medical Decision Making Data Points Result Diagram: 05/19/18 1719 05/19/18 171 Laboratory Hematology Test 05/19/18 16:56 05/19/18 17:19 Urine Color Straw Urine Clarity Clear Urine pH 6.0 pH (4.8-9.5) Urine Specific Snowflake 1.006 Urine Protein Negative mg/dL (NEGATIVE) Urine Glucose (UA) Negative mg/dL (NEGATIVE) Urine Ketones Negative mg/dL (NEGATIVE) Urine Blood Negative (NEGATIVE) Urine Nitrite Negative (NEGATIVE) Urine Bilirubin Negative (NEGATIVE) Urine Urobilinogen Negative mg/dL (0.2-1.9) Urine Leukocyte Esterase Trace (NEGATIVE) Urine RBC 1 /HPF (0-2/HPF) Urine WBC 2 /HPF (0-5/HPF) Urine Squamous Epithelial Cells Many /LPF (</=FEW) Urine Bacteria Moderate /HPF (NONE-FEW) Urine Mucus None /HPF (NONE-FEW) Urine HCG, Qualitative Negative (NEGATIVE) Urine Opiates Screen Negative Urine Barbiturates Screen Negative Ur Tricyclic Antidepressants Screen Negative Urine Phencyclidine Screen Negative Urine Amphetamines Screen Negative Urine Benzodiazepines Screen Negative Urine Cocaine Screen Negative Urine Cannabinoids Screen Negative Red Blood Count 4.51 M/uL (4.17-5.56) Mean Corpuscular Volume 90.1 fL (80.0-96.0) Mean Corpuscular Hemoglobin 32.0 pg (26.0-33.0) Mean Corpuscular Hemoglobin Concent 35.5 g/dL (32.0-36.0) Red Cell Distribution Width 13.4 % (11.5-14.5) Mean Platelet Volume 7.6 fL (7.2-11.1) Neutrophils (%) (Auto) 57.6 % (39.4-72.5) Lymphocytes (%) (Auto) 33.0 % (17.6-49.6) Monocytes (%) (Auto) 5.5 % (4.1-12.4) Eosinophils (%) (Auto) 3.0 % (0.4-6.7) Basophils (%) (Auto) 0.9 % (0.3-1.4) Nucleated RBC Relative Count (auto) 0.0 /100WBC Neutrophils # (Auto) 5.3 K/uL (2.0-7.4) Lymphocytes # (Auto) 3.0 K/uL (1.3-3.6) Monocytes # (Auto) 0.5 K/uL (0.3-1.0) Eosinophils # (Auto) 0.3 K/uL (0.0-0.5) Basophils # (Auto) 0.1 K/uL (0.0-0.1) Nucleated RBC Absolute Count (auto) 0.00 K/uL Sodium Level 141 mmol/L (137-145) Potassium Level 3.1 mmol/L (3.5-5.0) Chloride Level 104 mmol/L (98-107) Carbon Dioxide Level 27 mmol/L (22-31) Blood Urea Nitrogen 9 mg/dl (7-18) Creatinine 0.70 mg/dl (0.52-1.04) Glomerular Filtration Rate Calc > 60.0 Random Glucose 88 mg/dl (75-110) Calcium Level 9.3 mg/dl (8.4-10.2) Magnesium Level 2.0 mg/dl (1.7-2.2) Total Bilirubin 0.4 mg/dl (0.2-1.3) Aspartate Amino Transf (AST/SGOT) 39 U/L (0-35) Alanine Aminotransferase (ALT/SGPT) 53 U/L (0-56) Alkaline Phosphatase 74 U/L (0-126) Total Protein 7.4 g/dl (6.3-8.2) Albumin 4.4 g/dl (3.5-5.0) Salicylates Level < 10 mg/L Salicylate Last Dose Date unk Acetaminophen Level < 10 ug/ml Serum Alcohol < 10 mg/dl Chemistry Test 05/19/18 16:56 05/19/18 17:19 Urine Color Straw Urine Clarity Clear Urine pH 6.0 pH (4.8-9.5) Urine Specific Snowflake 1.006 Urine Protein Negative mg/dL (NEGATIVE) Urine Glucose (UA) Negative mg/dL (NEGATIVE) Urine Ketones Negative mg/dL (NEGATIVE) Urine Blood Negative (NEGATIVE) Urine Nitrite Negative (NEGATIVE) Urine Bilirubin Negative (NEGATIVE) Urine Urobilinogen Negative mg/dL (0.2-1.9) Urine Leukocyte Esterase Trace (NEGATIVE) Urine RBC 1 /HPF (0-2/HPF) Urine WBC 2 /HPF (0-5/HPF) Urine Squamous Epithelial Cells Many /LPF (</=FEW) Urine Bacteria Moderate /HPF (NONE-FEW) Urine Mucus None /HPF (NONE-FEW) Urine HCG, Qualitative Negative (NEGATIVE) Urine Opiates Screen Negative Urine Barbiturates Screen Negative Ur Tricyclic Antidepressants Screen Negative Urine Phencyclidine Screen Negative Urine Amphetamines Screen Negative Urine Benzodiazepines Screen Negative Urine Cocaine Screen Negative Urine Cannabinoids Screen Negative White Blood Count 9.2 k/uL (4.5-11.0) Red Blood Count 4.51 M/uL (4.17-5.56) Hemoglobin 14.4 g/dL (12.0-16.0) Hematocrit 40.7 % (34.0-47.0) Mean Corpuscular Volume 90.1 fL (80.0-96.0) Mean Corpuscular Hemoglobin 32.0 pg (26.0-33.0) Mean Corpuscular Hemoglobin Concent 35.5 g/dL (32.0-36.0) Red Cell Distribution Width 13.4 % (11.5-14.5) Platelet Count 357 K/uL (150-450) Mean Platelet Volume 7.6 fL (7.2-11.1) Neutrophils (%) (Auto) 57.6 % (39.4-72.5) Lymphocytes (%) (Auto) 33.0 % (17.6-49.6) Monocytes (%) (Auto) 5.5 % (4.1-12.4) Eosinophils (%) (Auto) 3.0 % (0.4-6.7) Basophils (%) (Auto) 0.9 % (0.3-1.4) Nucleated RBC Relative Count (auto) 0.0 /100WBC Neutrophils # (Auto) 5.3 K/uL (2.0-7.4) Lymphocytes # (Auto) 3.0 K/uL (1.3-3.6) Monocytes # (Auto) 0.5 K/uL (0.3-1.0) Eosinophils # (Auto) 0.3 K/uL (0.0-0.5) Basophils # (Auto) 0.1 K/uL (0.0-0.1) Nucleated RBC Absolute Count (auto) 0.00 K/uL Glomerular Filtration Rate Calc > 60.0 Calcium Level 9.3 mg/dl (8.4-10.2) Magnesium Level 2.0 mg/dl (1.7-2.2) Total Bilirubin 0.4 mg/dl (0.2-1.3) Aspartate Amino Transf (AST/SGOT) 39 U/L (0-35) Alanine Aminotransferase (ALT/SGPT) 53 U/L (0-56) Alkaline Phosphatase 74 U/L (0-126) Total Protein 7.4 g/dl (6.3-8.2) Albumin 4.4 g/dl (3.5-5.0) Salicylates Level < 10 mg/L Salicylate Last Dose Date unk Acetaminophen Level < 10 ug/ml Serum Alcohol < 10 mg/dl Toxicology Test 05/19/18 16:56 05/19/18 17:19 Urine Opiates Screen Negative Urine Barbiturates Screen Negative Ur Tricyclic Antidepressants Screen Negative Urine Phencyclidine Screen Negative Urine Amphetamines Screen Negative Urine Benzodiazepines Screen Negative Urine Cocaine Screen Negative Urine Cannabinoids Screen Negative Salicylates Level < 10 mg/L Salicylate Last Dose Date unk Acetaminophen Level < 10 ug/ml Serum Alcohol < 10 mg/dl Urinalysis Test 05/19/18 16:56 Urine Color Straw Urine Clarity Clear Urine pH 6.0 pH (4.8-9.5) Urine Specific Snowflake 1.006 Urine Protein Negative mg/dL (NEGATIVE) Urine Glucose (UA) Negative mg/dL (NEGATIVE) Urine Ketones Negative mg/dL (NEGATIVE) Urine Blood Negative (NEGATIVE) Urine Nitrite Negative (NEGATIVE) Urine Bilirubin Negative (NEGATIVE) Urine Urobilinogen Negative mg/dL (0.2-1.9) Urine Leukocyte Esterase Trace (NEGATIVE) Urine RBC 1 /HPF (0-2/HPF) Urine WBC 2 /HPF (0-5/HPF) Urine Squamous Epithelial Cells Many /LPF (</=FEW) Urine Bacteria Moderate /HPF (NONE-FEW) Urine Mucus None /HPF (NONE-FEW) Urine HCG, Qualitative Negative (NEGATIVE) ED Course/Re-evaluation ED Course Patient was admitted to an exam room, history and physical were obtained. The differential diagnoses were considered. On examination lungs are clear, heart is regular, abdomen soft nontender. Patient states that she is not suicidal, she denies everything the police had said. The lab work for a behavioral health admission were done. The results were unremarkable, patient had what appeared to be a urine. Patient was negative for opiates, although she did state that she took half a tablet of Percocet. The [facility] at came down and talked with patient. We'll go ahead and up hold her chcf. I discussed this with the patient. When she did she became very angry. She told me to "suck my mildred", and called me a "fucking faggot". I discussed the case with Dr. Celis, psychi atrist, who agreed to accept the patient for admission. He felt that she needed to have her chcf upheld. I discussed with patient that she was admitted, we discussed doing a medication to help calm her down. Patient refused stating that the only thing they could call her down was seeing her . She said that she would be behaved and understood that we are going to admit her to behavioral he alth. Decision to Disposition Date: May 19, 2018 Decision to Disposition Time: 18:40 Depart Departure Latest Vital Signs Vital Signs Date Time Temp Pulse Resp B/P (MAP) Pulse Ox O2 Delivery O2 Flow Rate FiO2 05/19/18 16:55 98.1 73 15 129/95 94 Room Air Impression: Primary Impression: Depression Additional Impression: Suicidal ideation Condition: Condition Unchanged Disposition: XFER TO [facility] Problem Qualifiers Primary Impression: Depression Depression Type: major depressive disorder Major depression recurrence: single episode Active/Remission status: currently active Major depression episode severity: moderate Qualified Codes: F32.1 - Major depressive disorder, single episode, moderate LANDRY CHAO May 19, 2018 17:19
[2018-05-19 17:24] LABS: PLATELET COUNT, AUTOMATED 357 K/uL (150-450)
--- NOTE | 2018-05-19 20:27 | BHS - Psychiatric Evaluation ---
ER - Title 25 MHE Evaluation Title 25 Evaluation Patient Detained By: Law Enforcement Referral Source: significant other Date Patient Detained: May 19, 2018 Time Patient Detained: 17:02 Date Long Term Expires: May 24, 2018 Time Long Term Expires: 17:02 Legal Status: Police Hold: No Legal Status: Residence: [facility] Resident Assessment Data Provided By: Patient, Law Enforcement HPI/ROS: Please refer to my note for history of present illness. Admit due to SI or Attempt: Yes Suicide Plan: Has Plan with Access Alcohol or Drugs Involved: Yes Mental Status Exam General Appearance: Cooperative, Psychomotor Agitation Speech: Clear, Normal Rate, Normal Tone Mood: Dysthmic/Depressed Affect: Sad, Flat, Withdrawn Thought Process: Logical Thought Content: No Suicidal Ideation, No Homicidal Ideation Sensorium: Clear Cognition: Alert & Oriented-Person, Alert & Oriented-Place, Alert & Oriented- Time, [id number] Memory: Immediate, Recent Insight Judgment: Fair Sleep: Normal Hallucinations: Denies Delusions: Denies Current Risk & History Current Dangerous Risk Assessm: Current Suicide Ideation, Self-Injurious Behaviors Past Dangerous Risk Assessm: Self-Injurious Behaviors Previous Suicide Attempt: No Previous Attempt Previous Psychiatric Illness: No Previous Psychiatric Treatment: No Risk Assessment & Disposition Evaluated Risk Assessment: With patient coming in and denying what the police report happen. It is my opinion that there is to much evidence pointing to the fact the patient in fact have intent to self-harm. Fact that she was found at the gastric patient, filling her car with gas with plan to have daily Headache, which she admitted. Also with the access to the Percocet in which she had alledgedly informed her that she was going to use to commit suicide. With those facts I think that the risk for releasing her home is far greater than keeping her. We will go ahead and uphold the intermediate. Impression: Primary Impression: Depression Additional Impression: Suicidal ideation Meets Mental Illness Req.: Yes Meets Dangerousness Req.: Yes Emergency Long Term to be: Upheld Date of Decision: May 19, 2018 Time of Decision: 18:30 Patient is Medically Stable at: Yes Disposition: [facility] Problem Qualifiers Primary Impression: Depression Depression Type: major depressive disorder Major depression recurrence: single episode Active/Remission status: currently active Major depression episode severity: moderate Qualified Codes: F32.1 - Major depressive disorder, single episode, moderate LANDRY CHAOP May 19, 2018 20:27
[2018-05-20] MEDS ORDERED: MULT-1379 PO (09:59)
[2018-05-20] MEDS ORDERED: NIC10R INH (10:00)
[2018-05-20] MEDS ORDERED: NICOTINE PO (10:01)
== END 2018-05-19 20:25 ==
LOC: ER 17:07
DX: F32.9 Major depressive disorder, single episode, unspecified (principal); R45.851 Suicidal ideations
CPT/HCPCS: 80305; 80320; 80329; 81001; 81025; 82040; 82247; 82310; 82374; 82435; 82565; 82947; 83735; 84075; 84132; 84155; 84295; 84443; 84450; 84460; 84520; 85025; 99282

== ENCOUNTER 2018-05-19 18:50 | Inpatient (IN) | payer SELFPAY ==
[~2018-05-19] VITALS: Ht 160 cm; Wt 62.1 kg
[2018-05-19] MEDS ORDERED: MAG HYD/AL HYD/SIMETH 30ML UDC PO PRN (20:10)
[2018-05-19] MEDS ORDERED: NICOTINE INH SYSTEM 10 MG/INH INH PRN (20:10)
[2018-05-19] MEDS ORDERED: NICOTINE CARTRIDGE 1 EA PO PRN (20:10)
[2018-05-19] MEDS ORDERED: ACETAMINOPHEN 325 MG TAB PO PRN (20:10)
[2018-05-19 22:43] VITALS: BP 123/86
[2018-05-20 06:04] VITALS: BP 97/69
[2018-05-20] MEDS ORDERED: MULTIVITAMINS TAB PO SCH (09:00)
[2018-05-20] MEDS ORDERED: MULT-1379 PO (09:59)
[2018-05-20] MEDS ORDERED: NIC10R INH (10:00)
[2018-05-20] MEDS ORDERED: NICOTINE PO (10:01)
[2018-05-20 10:31] VITALS: BP 118/88
--- NOTE | 2018-05-20 16:26 | SCHAAF H&P ---
This is a History and Physical as well as a Discharge Summary for a patient who was on the unit less than 24 hours. DATE OF ADMISSION: May 19, 2018 DATE OF DISCHARGE: May 20, 2018 ATTENDING PHYSICIAN Everett Celis MD Patient was seen at approximately 0900 hours on 20 May 2018 for note concerning this dictation. FINAL DIAGNOSES 1. Partner relational problem. 2. History of attention deficit disorder. 3. History of opiate dependence, in full remission. 4. Patient having supportive relationship with significant other at time of departure. REASON FOR ADMISSION This is a 33-year-old female who reports being in a relationship for over a year with her significant other. Patient reports being legally . Patient reports being under stress as they have been having some conflict, and patient's spouse has asked for a divorce. Patient reports to get back at her spouse, she texted her suicidal intentions involving a possible overdose on a minimal amount of opiates that patient had obtained from the Emergency Room for a recent ovarian cyst. Patient's spouse contacted law enforcement, who intervened. Patient was found to be potentially suicidal with a small amount of opiates that she had not consumed and en route to a [place] where patient had stated to her spouse she would attempt suicide. Patient was brought to the Emergency Room where she remained cooperative for quite some time. Patient found to have her spouse in the ER as well, patient then becoming verbally abusive of the ER staff. Emergency detainment initiated by police was upheld. Patient was brought to the unit. The next morning, patient interacting well with this provider, apologetic about her behaviors in the ER. Patient quick to meet with her spouse, and spouse agreed that patient would not need to be here for suicidal ideation. Detainment was lifted, and patient was sent home. MENTAL HEALTH HISTORY Patient reports never being an inpatient in a psychiatric [facility] before. Patient having no outpatient therapy that is ongoing or treatment since middle school where patient was at one point on medications for ADHD. Patient denies any history of suicide attempt. FAMILY PSYCHIATRIC HISTORY Patient reports her mother may have suffered from bipolar illness, and here dad suffered from alcoholism. There are no suicides in the family. PAST MEDICAL HISTORY 1. Recent ovarian cyst, which patient reports still is giving her some abdominal pain. 2. Patient reports SEASONAL ALLERGIES. 3. She has some mild asthma that is not in need of treatment at this point. ALLERGIES LATEX, CODEINE, and PENICILLIN. SOCIAL HISTORY The patient was born in [place] and raised there. Parents were at the time of her and still are. Patient is one of 13 siblings. Patient reports a complicated relationship regarding full siblings versus step-siblings, but reports good interactions with family. Patient is a high school graduate. She obtained an associates degree in automotive [employer] as well. Patient was briefly in the , but was discharged after a leg injury on a medical discharge. Patient has been in [place] for around four years. She has been legally times one at little over a year. She was currently living in the [place] area with her spouse until recently when they were having some estranged relationship issues. Patient currently working as a cook at the [employer] and enjoys her job very much. She has no children. LEGAL HISTORY None. SUBSTANCE ABUSE HISTORY Patient reports being addicted to heroin in the past, but moving from [place] to [place] to escape this and doing well overall. She continues to smoke cigarettes. Patient did recently obtain a small amount of opiates through the Emergency Room for ovarian cyst; however, patient noted to have these yet largely all in her possession at time of admission, and they are believed to be in police custody. Patient not having any opiate screen that was positive. When asked about symptoms of depression, patient denying any symptoms currently. She reports her sleep has always been somewhat problematic and her mood variable, but denies any other major depressive symptoms or suicidality. Patient denies javier, psychosis, or panic attacks. Patient alluding to some mild PTSD symptoms of watching her best friend be killed in a car accident when she was a young teenager. Patient denies any self-harm issues now or in the past. Patient overall interacting well with significant other. PHYSICAL EXAMINATION Please see emergency room note. Notable for: GENERAL: Initially cooperative, 33-year-old female, turning combative, later apologetic at time of discharge. VITAL SIGNS: Vital signs at the time of admission indicated temperature 98.1, pulse 73, respiratory rate 15, blood pressure 129/95, and pulse oximetry 94% on room air. At time of discharge from Behavioral Health Unit, vital signs showed temperature 98.5, pulse 65, respiratory rate 15, blood pressure 118/88, and pulse oximetry 95% on room air. LABORATORY DATA TSH noted to be somewhat elevated at 7.02. CBC unremarkable. CMP notable for potassium low at 3.1 with a mild elevation in AST of 39. Toxicology screen notably negative for substances of abuse including opiates and undetectable serum alcohol level. Urinalysis showed trace leukocyte esterase, but only two white blood cells, squamous epithelial cells, and some urine bacteria. Patient denying any symptoms of UTI at this time. screen was negative. MENTAL STATUS EXAMINATION AT TIME OF DISCHARGE GENERAL APPEARANCE, BEHAVIOR, AND ATTITUDE: This is a cooperative, polite, 33-year-old female, well groomed, making good eye contact. No periods of tearfulness. No bizarre mannerisms or tics. SPEECH: Within normal limits. Regular rate, rhythm, volume, and tone. MOOD: Described as okay. AFFECT: Full and bright at times and mood congruent. THOUGHT PROCESSES: Goal directed, logical. No loose associations or flight of ideas. THOUGHT CONTENT: Free of auditory or visual hallucinations, ideas of reference, thought broadcastings, delusions, obsessions, or compulsions. Patient adamantly denying suicidal or homicidal ideation. This was also agreed upon by spouse present in room. SENSORIUM: Clear. COGNITION: Alert and oriented to person, place, time, and situation. MEMORY: Immediate, recent, and remote estimated intact. INTELLIGENCE: Average based on interview. INSIGHT AND JUDGMENT: Considered grossly intact and appropriate for outpatient treatment in the absence of substance abuse. ASSESSMENT This is a 33-year-old female who appears to be suffering from a partner relational problem at this time. Patient does not seem to be in need of further hospitalization, but does agree to seek outpatient treatment which will be arranged before discharge. Patient's spouse also in agreement that patient no longer needs to be on the unit, and patient discharged to home. DIAGNOSES 1. Partner relational problem. 2. History of attention deficit disorder. 3. History of opiate addiction, in full remission. 4. Patient having supportive relationship with partner at time of discharge. PLAN Patient will discharge to home. Patient will follow up with outpatient therapy as scheduled. Individual and couples therapy was encouraged. Patient would avoid use of substance including opiates at this time and alcohol. She was given the crisis line should symptoms return. Patient encouraged to remain on multivitamin. Patient would also follow up with primary care provider for mild elevation in TSH. Patient encouraged to continue nicotine replacement for smoking cessation. Risks, benefits, and alternatives of above discharge plan were discussed. Informed consent was given to proceed with above discharge plan by this competent patient and patient's spouse present at time of discharge. This is a History and Physical as well as a Discharge Summary for a patient who was on the unit less than 24 hours. KARL
== END 2018-05-20 10:59 | disposition home or self-care (01) | DRG 918 ==
LOC: BHS 18:50
PROVIDERS: ADMIT Psychiatry & Neurology Psychiatry; ATTEND Psychiatry & Neurology Psychiatry
DX: T40.602A Poisoning by unspecified narcotics, intentional self-harm, initial encounter (principal); F90.9 Attention-deficit hyperactivity disorder, unspecified type; F43.12 Post-traumatic stress disorder, chronic; F17.210 Nicotine dependence, cigarettes, uncomplicated; Z63.0 Problems in relationship with spouse or partner; N83.209 Unspecified ovarian cyst, unspecified side; Z81.1 Family history of alcohol abuse and dependence; Z81.8 Family history of other mental and behavioral disorders; Z91.040 Latex allergy status; Z88.0 Allergy status to penicillin; Z88.8 Allergy status to other drugs, medicaments and biological substances
CPT/HCPCS: 87088

== ENCOUNTER → 2018-09-06 | Outpatient (CLI) | payer SELFPAY ==
[~2018-09-06] MED LIST changes: +BARIUM SULFATE 176 GM BTL PO ONE; +BARIUM SULFATE 340 GM POWD ONE; +BREX3TAB; +FLUINH INH; +MULT-1379 PO; +NIC10R INH; +NICOTINE PO; +PANT40TA65 PO
--- NOTE | 2018-09-06 18:20 | RADIOLOGY IMAGING REPORT ---
[facility] PATIENT NAME: Elaine Brito : 1985 MR: [id number] V: [id number] EXAM DATE: ORDERING PHYSICIAN: TEOFILO COFFEY TECHNOLOGIST: Location: [facility] Patient: Elaine Brito : 1985 Visit/Account:[id number] Date of Sevice: 09/06/2018 Exam type: UPPER GI W/SMALL BOWEL SERIES History: n/v, abdominal pain, BRBPR, hematemesis Comparison: None. Findings: Double contrast upper GI series was performed with thick and thin barium and air contrast. There is a small hiatal hernia present although small to moderate amount of gastroesophageal reflux observed. No abnormality of the stomach duodenal bulb or duodenal C-loop was seen. The barium was then follow ed throughout the normal-appearing small bowel to the unremarkable terminal ileum. There was however rapid transit to the right-sided the colon which was visualized immediately following the upper GI s eries. The fluoroscopy dose area product was 740.12 micro-Caal per meter squared IMPRESSION: 1. Small hiatal hernia with a small to moderate amount of gastroesophageal reflux. Rapid transit of barium through the small bowel which was visualized immediately following the upper GI series Report Dictated By: Hilda Nogueira MD at 09/06/2018 6:14 PM Report E-Signed By: Hilda Nogueira MD at 09/06/2018 6:16 PM WSN:[id number]
== END ==
LOC: RAD 04:49
PROVIDERS: ATTEND Surgery
DX: K21.9 Gastro-esophageal reflux disease without esophagitis (principal); K44.9 Diaphragmatic hernia without obstruction or gangrene; Z80.0 Family history of malignant neoplasm of digestive organs
CPT/HCPCS: 74245

== ENCOUNTER 2018-11-08 21:13 | Emergency (ER) | payer SELFPAY ==
[~2018-11-08 21:13] MED LIST changes: -BARIUM SULFATE 176 GM BTL PO ONE; -BARIUM SULFATE 340 GM POWD ONE
[2018-11-08 21:17] VITALS: BP 116/85
[2018-11-08] MEDS ORDERED: ACETAMINOPHEN 325 MG TAB PO ONE (21:20)
[2018-11-08] MEDS ORDERED: ONDANSETRON 4 MG/2 ML VIAL IVP ONE (21:20)
[2018-11-08] MEDS ORDERED: predniSONE 20 MG TAB PO ONE (21:25)
[2018-11-08] MEDS ORDERED: IBUPROFEN 600 MG TAB PO ONE (21:25)
[2018-11-08] MEDS ORDERED: APAP/HYDROCODONE 325/5 TAB PO ONE (21:25)
--- NOTE | 2018-11-08 21:31 | ER Report ---
History and Physical Time Seen By MD: 21:23 Hx. 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 She is unable to move it or lifted. She states she lifts heavy objects at work. She recalls no specific injury. She's been taking ibuprofen with no improvement. Patient denies history of previous rotator cuff tear or shoulder problems. Patient notes no swelling or redness. Allergies: Coded Allergies: Penicillins (Verified Allergy, Mild, ITCHING, 05/19/18) codeine (Verified Allergy, Mild, ITCHING, 05/19/18) latex (Verified Allergy, Mild, rash, 05/19/18) Home Meds Active Scripts Hydrocodone Bit/Acetaminophen (HYDROCODON-ACETAMINOPHEN 5-325) 1 Each Tablet, 1 EACH PO Q4-6H PRN for PAIN, #12 TAKE ONE TABLET BY MOUTH EVERY 4-6 HOURS NEEDED FOR PAIN Prov:MESERET MAYEN Radha RESTREPO 11/08/18 Prednisone (PREDNISONE) 20 Mg Tablet, 20 MG PO QDAY for reduce inflammation, #5 TAB One by mouth daily for 5 days Prov:MESERET MAYEN 11/08/18 Reported Medications Brexpiprazole (Rexulti) 3 Mg Tablet, 4 MG DAILY 08/31/18 Fluticasone Propionate (FLOVENT HFA) 110 Mcg Inha, 110 MCG INH PRN 08/31/18 Discontinued Scripts Pantoprazole Sodium (PANTOPRAZOLE SODIUM) 40 Mg Tablet., 1 TAB PO DAILY, #14 TAB 0 Refills Prov:TEOFILO COFFEY MD 08/31/18 Reviewed Nurses Notes: Yes Old Medical Records Reviewed: Yes Hx Smoking: Yes Smoking Status: Current: Every Day Smoker, Heavy Tobacco Smoker Exposure to Second Hand Smoke?: No Hx Substance Use Disorder: Yes Hx Alcohol Use: No Constitutional Vital Sign - Last 24 Hours 11/08/18 21:17 Temp 97.8 Pulse 91 Resp 18 B/P (MAP) 116/85 Pulse Ox 95 O2 Delivery Room Air Physical Exam General appearance: Alert no distress. Respiratory: Chest is non tender, lungs are clear to auscultation. Cardiac: Regular rate and rhythm Extremities: Examination of left shoulder reveals a very mild effusion. It is tender to touch. There is no warmth or erythema. There is pain with any movement of the left shoulder. The left upper extremity is neurovascularly intact. DIFFERENTIAL DIAGNOSIS: After history and physical exam differential diagnosis was considered for sprain, strain, fracture, dislocation, rotator cuff tear, arthritis, bursitis Medical Decision Making EKG/Imaging Imaging X-ray: Two-view left shoulder was obtained. I viewed the images myself on the PACS system. My interpretation of the images is: No fracture no dislocation or malalignment, no degenerative changes. The radiologist interpretation had no clinically significant variation from this interpretation. ED Course/Re-evaluation ED Course Patient was minute to an examination room. H&P was done. The differential diagnoses was considered. Patient on clinical examination has acute left shoulder effusion and pain. She has decreased range of motion. She recalls no specific injury. Diagnostic x-rays are performed which are unremarkable. She's medicated with Lortab for pain. Patient's placed in a sling. She is advised to conservative treatment plan of ibuprofen 600 mg 3 times daily. She's been on low-dose prednisone taper. He is given a limited supply of Lortab for temporary pain relief. She is advised to apply heating pad to her left shoulder. Decision to Disposition Date: Nov 08, 2018 Decision to Disposition Time: 21:47 Depart Departure Latest Vital Signs Vital Signs Date Time Temp Pulse Resp B/P (MAP) Pulse Ox O2 Delivery O2 Flow Rate FiO2 11/08/18 21:17 97.8 91 18 116/85 95 Room Air Impression: Primary Impression: Left shoulder pain Condition: Improved Disposition: HOME OR SELF-CARE New Scripts Hydrocodone Bit/Acetaminophen (HYDROCODON-ACETAMINOPHEN 5-325) 1 Each Tablet 1 EACH PO Q4-6H PRN for PAIN, #12 TAKE ONE TABLET BY MOUTH EVERY 4-6 HOURS NEEDED FOR PAIN Prov: MESERET MAYEN DO 11/08/18 Prednisone (PREDNISONE) 20 Mg Tablet 20 MG PO QDAY for reduce inflammation, #5 TAB One by mouth daily for 5 days Prov: MESERET MAYEN DO 11/08/18 Patient Instructions: Shoulder Pain (ED) Additional Instructions: Take ibuprofen 200 mg 3 tablets 3 times a day with food Apply heating pad to your shoulder Wear sling for 5 days Follow-up with primary care or orthopedics if unimproved. See Dr[facility] [phone], [address] Problem Qualifiers Primary Impression: Left shoulder pain Chronicity: acute Qualified Codes: M25.512 - Pain in left shoulder MESERET MAYEN DO Nov 08, 2018 21:31
[2018-11-08] MEDS ORDERED: LOR5/325 PO (21:50)
[2018-11-08] MEDS ORDERED: PRED20TA6 PO (21:50)
[2018-11-08] MEDS ORDERED: ACET/HYDROC 5/325MG TH ER ONLY 2 TAB/BOTTLE PO ONE (21:55)
--- NOTE | 2018-11-08 21:56 | RADIOLOGY IMAGING REPORT ---
FACILITY: [facility] PATIENT NAME: Elaine Brito : 1985 MR: [id number] V: [id number] EXAM DATE: ORDERING PHYSICIAN: MESERET MAYEN TECHNOLOGIST: Location: [facility] Patient: Elaine Brito : 1985 Visit/Account:[id number] Date of Sevice: 11/08/2018 Examination: SHOULDER MIN 2 VIEWS LEFT Comparison: None. History: Left shoulder pain for 3 weeks. No known injury. Findings: No fracture. Alignment and joint spaces are within normal limits. No evidence of acute dise ase in the visualized lungs. Soft tissues are unremarkable. IMPRESSION: Negative left shoulder. Report Dictated By: Yousif Allan MD at 11/08/2018 9:49 PM Report E-Signed By: Yousif Allan MD at 11/08/2018 9:51 PM WSN:[id number]
== END 2018-11-08 22:03 | disposition home or self-care (01) ==
LOC: ER 21:30
DX: M25.512 Pain in left shoulder (principal)
CPT/HCPCS: 73030; 99283; A4565; J7512

== ENCOUNTER 2018-11-17 01:38 | Day surgery (SDC) | payer SELFPAY ==
[~2018-11-17] VITALS: Ht 158.8 cm; Wt 66.2 kg
[2018-11-17] VITALS (7 sets, daily range): BP systolic 109–127; BP diastolic 80–97
[~2018-11-17 01:38] MED LIST changes: +LOR5/325 PO; +PRED20TA6 PO
[2018-11-17] MEDS ORDERED: LIDOCAINE/SOD BICARB 8.4% SYR ID ONE (06:30)
[2018-11-17] MEDS ORDERED: NORMOSOL R SOLN(*) 1000 ML BAG 1,000 ML IV PRN (06:30)
[2018-11-17] MEDS ORDERED: LIDOCAINE MPF 1% 5 ML VIAL ONE (06:49)
[2018-11-17] MEDS ORDERED: PROPOFOL EMUL(*) 10MG/ML 20 ML 60 ML ONE (06:49)
[2018-11-17] MEDS ORDERED: KETAMINE HCL 500 MG/10 ML VIAL ONE (06:50)
--- NOTE | 2018-11-17 08:25 | Short(Outpt) Discharge Summary ---
Discharge Summary Reason for Hosp/Final Diag: (1) Hematemesis Status: Chronic Hospital Course & Plan: EGD and colonoscopy, both with biopsies and 1 colon polyp removed, completed without problems. (2) Hematochezia Status: Chronic (3) Melena Status: Chronic (4) Epigastric pain Status: Chronic (5) Alternating constipation and diarrhea Status: Chronic Departure Discharge to: Home, Self Care Discharge Instructions Home Meds Active Scripts Hydrocodone Bit/Acetaminophen (HYDROCODON-ACETAMINOPHEN 5-325) 1 Each Tablet, 1 EACH PO Q4-6H PRN for PAIN, #12 TAKE ONE TABLET BY MOUTH EVERY 4-6 HOURS NEEDED FOR PAIN Prov:MESERET MAYEN DO 11/08/18 Prednisone (PREDNISONE) 20 Mg Tablet, 20 MG PO QDAY for reduce inflammation, #5 TAB One by mouth daily for 5 days Prov:MESERET MAYEN DO 11/08/18 Reported Medications Brexpiprazole (Rexulti) 3 Mg Tablet, 4 MG DAILY 08/31/18 Fluticasone Propionate (FLOVENT HFA) 110 Mcg Inha, 110 MCG INH PRN 08/31/18 Diet: Regular Activity: As Tolerated Special Instructions: Your upper endoscopy and colonoscopy were completed without problems. Your colon prep was not great and so I couldn't see some portions of your colon due to retained stool but I didn't find any evidence of inflammation, cancer, or other problems that would explain your symptoms. I did remove a polyp from your sigmoid colon and it was sent to pathology. My office will call you in the next several days to schedule a follow up appointment to see me in the office to discuss all these results but, in any case, you should have another colonoscopy in 5 years due to your family history of colon cancer. Problem Qualifiers (1) Hematemesis: Nausea presence: with nausea Qualified Codes: K92.0 - Hematemesis TEOFILO COFFEY MD Nov 17, 2018 08:25
== END 2018-11-17 09:30 | disposition home or self-care (01) ==
LOC: OR 01:38
PROVIDERS: ATTEND Surgery
DX: K92.1 Melena (principal); K63.5 Polyp of colon; R11.2 Nausea with vomiting, unspecified
CPT/HCPCS: 00813; 36415; 43239; 45380; 45385; 81025; 83516; 87077; 88305; J2001; J2704; J3490